=== PATIENT | female | born 1980 | race Caucasian/White ===

== ENCOUNTER 2021-07-26 09:59 | Emergency (ER) | payer OTHER ==
[2021-07-26 11:00] LABS: BASOPHIL 0.5 % (0-2); EOSINOPHIL 0.4 % (0-5); HCT 42.8 % (37.0-47.0); HGB 14.3 g/dl (12.5-16.0); LYMPHOCYTE 14.2 % (15-48); MCH 29.7 pg (25.0-31.0); MCHC 33.4 g/dL (32.0-36.0); MCV 88.8 fL (78.0-100.0); MONOCYTE 4.3 % (0-12); MPV 8.8 fL (6.0-9.5); NEUTROPHIL 79.9 % (41-80); PLT 258 K/uL (150-400); RBC 4.82 M/uL (4.20-5.40); RDW 13.3 % (11.5-14.0); WBC 9.7 K/uL (4.0-10.5)
[2021-07-26 11:04] LABS: NRBC 0
[2021-07-26 11:45] LABS: BILIRUBIN - TOTAL 0.4 mg/dL (0.2-1.0); BUN/CREAT RATIO (CALC) 17.1 RATIO; CREATININE 0.7 mg/dL (0.51-0.95); GLOBULIN (CALCULATION) 3.7 g/dL; TOTAL PROTEIN 7.7 g/dL (6.4-8.2)
[2021-07-26 14:05] LABS: BILIRUBIN NEGATIVE (NEGATIVE); BLOOD NEGATIVE Ery/uL (NEGATIVE); CLARITY CLEAR (CLEAR); COLOR YELLOW (YELLOW); GLUCOSE (U) NORMAL (NORMAL); LEUKOCYTES NEGATIVE Leu/uL (NEGATIVE); NITRITE NEGATIVE (NEGATIVE); PROTEIN TRACE (LOW) mg/dL (NEGATIVE); SPECIFIC GRAVITY 1.015 (1.001-1.030); UROBILINOGEN 0.2 mg/dL (0.2-1.0); pH 8.5 (5.0-9.0)
[2021-07-26 14:25] LABS: BACTERIA TRACE; URINARY WBC RARE
[2021-07-26 14:26] LABS: AMORPHOUS PHOSPHATE CRYSTALS TRACE
[2021-07-26] MEDS ORDERED: ZOFRAN4 M1 SL (15:23)
== END 2021-07-26 15:43 | disposition home or self-care (01) ==
LOC: FER 09:59
PROVIDERS: Emergency Medicine; Nurse Practitioner Family
DX: R06.02 Shortness of breath (principal); R11.2 Nausea with vomiting, unspecified; R51.9 Headache, unspecified; Z20.822 Contact with and (suspected) exposure to COVID-19
CPT/HCPCS: 36415; 71045; 80053; 81001; 85025; 85379; J1100; J1885; J2060; J7030; U0002